=== PATIENT | female | born 1935 | race Caucasian/White ===

== ENCOUNTER → 2016-02-25 | Outpatient (REF) | payer MEDICARE ==
[2016-02-25 21:08] LABS: INR 2.47
== END ==
LOC: M SFHCLERA 09:40
PROVIDERS: ATTEND Family Medicine
DX: Z79.01 Long term (current) use of anticoagulants (principal)

== ENCOUNTER → 2016-03-24 | Outpatient (REF) | payer MEDICARE ==
[2016-03-24 19:16] LABS: INR 3.03
== END ==
LOC: M SFHCLERA 13:45
PROVIDERS: ATTEND Family Medicine
DX: Z51.81 Encounter for therapeutic drug level monitoring (principal); Z79.01 Long term (current) use of anticoagulants
CPT/HCPCS: 85610; 86580; G0463

== ENCOUNTER → 2016-04-07 | Outpatient (REF) | payer MEDICARE ==
[2016-04-07 22:03] LABS: INR 2.47
== END ==
LOC: M SFHCLERA 16:45
PROVIDERS: ATTEND Family Medicine
DX: Z79.01 Long term (current) use of anticoagulants (principal)

== ENCOUNTER → 2018-07-26 | Outpatient (REF) | payer MEDICARE | LOC: M SFHCLERA 16:54 | PROVIDERS: ATTEND Nurse Practitioner Family | DX: R32 Unspecified urinary incontinence (principal) | CPT/HCPCS: 81002; 87086; G0463 ==

== ENCOUNTER → 2018-07-27 | Outpatient (REF) | payer MEDICARE | LOC: M SFHCLERA 14:03 | PROVIDERS: ATTEND Nurse Practitioner Family | DX: R32 Unspecified urinary incontinence (principal) ==

== ENCOUNTER → 2018-08-12 | Outpatient (CLI) | payer MEDICARE ==
--- NOTE | 2018-08-12 15:17 | REP ---
HISTORY: Pneumonia. I have no priors for comparison. The heart is enlarged. There is a single chamber bipolar pacemaker device. There is evidence of interstitial fibrosis. The lung chaparro are hyperexpanded. Curvilinear and somewhat patchy bibasilar opacities are present. There is right cardiophrenic and costophrenic angle blunting. There are chronic changes seen involving the imaged osseous structures with a marked thoracic kyphosis and bony demineralization. IMPRESSION: Chronic changes as described above and seen in conjunction with cardiomegaly and bibasilar opacities of uncertain etiology. Although the findings likely represent chronic changes, I cannot rule out the possibility of bibasilar pneumonia, right greater than left and with a small right pleural effusion. Comparison to priors is paramount. An addendum report will be made if and when priors are made available for comparison. Electronically Signed by Claudy Cardenas DO 08/12/2018 03:32 P
== END ==
LOC: M LRY 14:04
PROVIDERS: ATTEND Family Medicine
DX: I51.7 Cardiomegaly (principal); R91.8 Other nonspecific abnormal finding of lung field; J18.1 Lobar pneumonia, unspecified organism
CPT/HCPCS: 71046; G0463

== ENCOUNTER → 2018-08-27 | Outpatient (CLI) | payer MEDICARE ==
--- NOTE | 2018-08-27 12:41 | REP ---
Clinical: Shortness of breath. Technique: PA and lateral views of the chest. Comparison: 08/12/2018. Findings: Mediastinum, cardiac silhouette, and lung chaparro are stable. Chronic changes primarily involving the mid to lower lobes and right diaphragmatic surface with blunting of the costophrenic angle appears chronic. No obvious acute process. Impression: Chronic stable changes compared to prior examination. No obvious acute process. Electronically Signed by Naveen Aguilera MD 08/27/2018 12:32 P
== END ==
LOC: M LRY 11:43
PROVIDERS: ATTEND Family Medicine
DX: R06.02 Shortness of breath (principal)

== ENCOUNTER → 2018-08-27 | Outpatient (CLI) | payer MEDICARE | LOC: M LRY 11:41 | PROVIDERS: ATTEND Family Medicine | DX: Z53.9 Procedure and treatment not carried out, unspecified reason (principal) ==

== ENCOUNTER → 2018-10-18 | Outpatient (REF) | payer MEDICARE | LOC: M SFHCLERA 10:25 | PROVIDERS: ATTEND Nurse Practitioner Family | DX: R46.89 Other symptoms and signs involving appearance and behavior (principal); J02.9 Acute pharyngitis, unspecified ==

== ENCOUNTER → 2018-10-18 | Outpatient (CLI) | payer MEDICARE ==
--- NOTE | 2018-10-19 06:21 | REP ---
CHEST, TWO VIEWS: PA and lateral views of the chest are performed. COMPARISON: 08/27/2018 Pleural and parenchymal changes in the lung bases appear stable and likely chronic. No new infiltrate is seen. Cardiac silhouette is mildly prominent and unchanged. There is calcification and tortuosity of the thoracic aorta. Mediastinal silhouette is unchanged. Lung apices are suboptimally visualized due to the patient's chin overlying these regions. Single lead pacemaker is unchanged. There is osteopenia. There are degenerative changes of the spine. There are compression deformities of the mid thoracic spine unchanged. IMPRESSION: Stable exam. Electronically Signed by Tenzin Madrid MD 10/19/2018 11:49 P
== END ==
LOC: M LRY 10:28
PROVIDERS: ATTEND Nurse Practitioner Family
DX: R91.8 Other nonspecific abnormal finding of lung field (principal); M85.88 Other specified disorders of bone density and structure, other site; R46.89 Other symptoms and signs involving appearance and behavior; Z95.0 Presence of cardiac pacemaker
CPT/HCPCS: 71046; 81002; 87086; 87880; G0463

== ENCOUNTER → 2019-02-22 | Outpatient (REF) | payer MEDICARE ==
[2019-02-22 12:18] LABS: HEMATOCRIT 40.5 % (36.0-47.0); HEMOGLOBIN 13.2 g/dl (12.0-15.5); MEAN CORPUSCULAR HEMOGLOBIN 32.7 pg (27.0-33.0); MEAN CORPUSCULAR HGB CONC 32.6 g/dl (32.0-36.5); MEAN CORPUSCULAR VOLUME 100.2 fl (80.0-96.0); PLATELET COUNT, AUTOMATED 145 10^3/uL (150-450); RED BLOOD COUNT 4.04 10^6/uL (4.00-5.40); WHITE BLOOD COUNT 4.3 10^3/uL (4.0-10.0)
[2019-02-22 12:32] LABS: INR 3.04; PROTHROMBIN TIME 31.4 SECONDS (11.8-14.0)
[2019-02-22 12:46] LABS: BLOOD UREA NITROGEN 11 MG/DL (7-18); CALCIUM LEVEL 8.5 MG/DL (8.8-10.2); CARBON DIOXIDE LEVEL 34 MEQ/L (21-32); CHLORIDE LEVEL 102 MEQ/L (98-107); GLOMERULAR FILTRATION RATE > 60.0 (>32); GLUCOSE, FASTING 116 MG/DL (70-100); NT-PRO BNP 235 PG/ML (<450); POTASSIUM SERUM 4.7 MEQ/L (3.5-5.1); SODIUM LEVEL 140 MEQ/L (136-145)
== END ==
PROVIDERS: ATTEND Internal Medicine
DX: I50.20 Unspecified systolic (congestive) heart failure (principal); I48.91 Unspecified atrial fibrillation

== ENCOUNTER → 2019-02-25 | Outpatient (REF) ==
[2019-02-25 10:24] LABS: INR 1.52
== END ==
PROVIDERS: ATTEND Internal Medicine
DX: I48.91 Unspecified atrial fibrillation (principal)

== ENCOUNTER → 2019-02-28 | Outpatient (REF) ==
[2019-02-28 13:31] LABS: INR 1.4; PROTHROMBIN TIME 16.9 SECONDS (11.8-14.0)
== END ==
PROVIDERS: ATTEND Internal Medicine
DX: I48.91 Unspecified atrial fibrillation (principal)

== ENCOUNTER → 2019-03-03 | Outpatient (REF) ==
[2019-03-03 12:45] LABS: HEMATOCRIT 40.4 % (36.0-47.0); HEMOGLOBIN 13.7 g/dl (12.0-15.5); MEAN CORPUSCULAR HEMOGLOBIN 33.7 pg (27.0-33.0); MEAN CORPUSCULAR HGB CONC 33.9 g/dl (32.0-36.5); MEAN CORPUSCULAR VOLUME 99.5 fl (80.0-96.0); PLATELET COUNT, AUTOMATED 145 10^3/uL (150-450); RED BLOOD COUNT 4.06 10^6/uL (4.00-5.40); WHITE BLOOD COUNT 4.4 10^3/uL (4.0-10.0)
[2019-03-03 13:03] LABS: INR 1.61; PROTHROMBIN TIME 18.9 SECONDS (11.8-14.0)
[2019-03-03 13:21] LABS: BLOOD UREA NITROGEN 9 MG/DL (7-18); CALCIUM LEVEL 8.2 MG/DL (8.8-10.2); CARBON DIOXIDE LEVEL 31 MEQ/L (21-32); CHLORIDE LEVEL 103 MEQ/L (98-107); CREATININE FOR GFR 0.72 MG/DL (0.55-1.30); GLOMERULAR FILTRATION RATE > 60.0 (>32); GLUCOSE, FASTING 76 MG/DL (70-100); POTASSIUM SERUM 4.8 MEQ/L (3.5-5.1); SODIUM LEVEL 140 MEQ/L (136-145)
== END ==
PROVIDERS: ATTEND Internal Medicine
DX: I48.20 Chronic atrial fibrillation, unspecified (principal); I50.20 Unspecified systolic (congestive) heart failure

== ENCOUNTER → 2019-03-05 | Outpatient (REF) | payer MEDICARE ==
[2019-03-05 11:03] LABS: INR 1.73
== END ==
PROVIDERS: ATTEND Internal Medicine
DX: Z79.01 Long term (current) use of anticoagulants (principal)

== ENCOUNTER → 2019-03-09 | Outpatient (REF) | payer MEDICARE ==
[2019-03-09 12:18] LABS: HEMATOCRIT 43.3 % (36.0-47.0); HEMOGLOBIN 14.5 g/dl (12.0-15.5); MEAN CORPUSCULAR HEMOGLOBIN 33.4 pg (27.0-33.0); MEAN CORPUSCULAR HGB CONC 33.5 g/dl (32.0-36.5); MEAN CORPUSCULAR VOLUME 99.8 fl (80.0-96.0); PLATELET COUNT, AUTOMATED 198 10^3/uL (150-450); RED BLOOD COUNT 4.34 10^6/uL (4.00-5.40); WHITE BLOOD COUNT 6.7 10^3/uL (4.0-10.0)
[2019-03-09 12:33] LABS: INR 2.69; PROTHROMBIN TIME 28.5 SECONDS (11.8-14.0)
[2019-03-09 13:08] LABS: ALBUMIN 3.2 GM/DL (3.2-5.2); ALT/SGPT 15 U/L (12-78); BILIRUBIN,TOTAL 0.4 MG/DL (0.2-1.0); BLOOD UREA NITROGEN 14 MG/DL (7-18); CARBON DIOXIDE LEVEL 32 MEQ/L (21-32); CHLORIDE LEVEL 101 MEQ/L (98-107); CREATININE FOR GFR 0.89 MG/DL (0.55-1.30); GLOMERULAR FILTRATION RATE > 60.0 (>32); GLUCOSE, FASTING 113 MG/DL (70-100); POTASSIUM SERUM 5.4 MEQ/L (3.5-5.1); SODIUM LEVEL 140 MEQ/L (136-145); TOTAL 25(OH) VITAMIN D 41.4 NG/ML (30.0-100.0); TOTAL PROTEIN 6.7 GM/DL (6.4-8.2)
== END ==
PROVIDERS: ATTEND Internal Medicine
DX: I48.91 Unspecified atrial fibrillation (principal); I11.0 Hypertensive heart disease with heart failure; I50.9 Heart failure, unspecified; E55.9 Vitamin D deficiency, unspecified; Z79.899 Other long term (current) drug therapy

== ENCOUNTER → 2019-03-14 | Outpatient (REF) | payer MEDICARE ==
[2019-03-14 10:42] LABS: INR 2.61; PROTHROMBIN TIME 27.8 SECONDS (11.8-14.0)
== END ==
PROVIDERS: ATTEND Internal Medicine
DX: I48.91 Unspecified atrial fibrillation (principal); E87.6 Hypokalemia

== ENCOUNTER → 2019-03-21 | Outpatient (REF) | payer MEDICARE ==
[2019-03-21 10:52] LABS: INR 2.41; PROTHROMBIN TIME 26.1 SECONDS (11.8-14.0)
== END ==
PROVIDERS: ATTEND Internal Medicine
DX: E87.6 Hypokalemia (principal); Z79.899 Other long term (current) drug therapy

== ENCOUNTER → 2019-03-28 | Outpatient (REF) | payer MEDICARE ==
[2019-03-28 10:25] LABS: INR 2.68; PROTHROMBIN TIME 28.4 SECONDS (11.8-14.0)
== END ==
PROVIDERS: ATTEND Internal Medicine
DX: I48.91 Unspecified atrial fibrillation (principal)

== ENCOUNTER → 2019-04-04 | Outpatient (REF) | payer MEDICARE ==
[2019-04-04 09:43] LABS: INR 2.51; PROTHROMBIN TIME 26.9 SECONDS (11.8-14.0)
== END ==
PROVIDERS: ATTEND Nurse Practitioner Adult Health
DX: I48.91 Unspecified atrial fibrillation (principal)

== ENCOUNTER → 2019-04-11 | Outpatient (REF) | payer MEDICARE ==
[2019-04-11 12:05] LABS: BLOOD UREA NITROGEN 11 MG/DL (7-18); CALCIUM LEVEL 8.7 MG/DL (8.8-10.2); CARBON DIOXIDE LEVEL 35 MEQ/L (21-32); CHLORIDE LEVEL 103 MEQ/L (98-107); CREATININE FOR GFR 0.76 MG/DL (0.55-1.30); GLOMERULAR FILTRATION RATE > 60.0 (>32); GLUCOSE, FASTING 63 MG/DL (70-100); POTASSIUM SERUM 4.4 MEQ/L (3.5-5.1); SODIUM LEVEL 140 MEQ/L (136-145)
== END ==
PROVIDERS: ATTEND Internal Medicine
DX: E87.6 Hypokalemia (principal)

== ENCOUNTER → 2019-04-18 | Outpatient (REF) | payer MEDICARE ==
[2019-04-18 10:10] LABS: INR 2.32; PROTHROMBIN TIME 25.3 SECONDS (11.8-14.0)
== END ==
PROVIDERS: ATTEND Nurse Practitioner Adult Health
DX: I48.91 Unspecified atrial fibrillation (principal)

== ENCOUNTER → 2019-04-25 | Outpatient (REF) | payer MEDICARE ==
[2019-04-25 13:18] LABS: INR 2.1; PROTHROMBIN TIME 23.4 SECONDS (11.8-14.0)
== END ==
PROVIDERS: ATTEND Internal Medicine
DX: I48.91 Unspecified atrial fibrillation (principal)

== ENCOUNTER → 2019-05-16 | Outpatient (REF) | payer MEDICARE ==
[2019-05-16 11:53] LABS: INR 2.06
== END ==
PROVIDERS: ATTEND Nurse Practitioner Adult Health
DX: I48.91 Unspecified atrial fibrillation (principal)

== ENCOUNTER → 2019-05-30 | Outpatient (REF) | payer MEDICARE ==
[2019-05-30 11:44] LABS: INR 1.37; PROTHROMBIN TIME 16.6 SECONDS (11.8-14.0)
== END ==
PROVIDERS: ATTEND Nurse Practitioner Adult Health
DX: I48.91 Unspecified atrial fibrillation (principal); Z79.01 Long term (current) use of anticoagulants

== ENCOUNTER → 2019-06-06 | Outpatient (REF) | payer MEDICARE ==
[2019-06-06 12:29] LABS: INR 1.64; PROTHROMBIN TIME 19.1 SECONDS (11.8-14.0)
== END ==
PROVIDERS: ATTEND Nurse Practitioner Adult Health
DX: I48.91 Unspecified atrial fibrillation (principal)

== ENCOUNTER → 2019-06-13 | Outpatient (REF) | payer MEDICARE ==
[2019-06-13 14:16] LABS: INR 2.83; PROTHROMBIN TIME 29.7 SECONDS (11.8-14.0)
== END ==
PROVIDERS: ATTEND Nurse Practitioner Adult Health
DX: I48.91 Unspecified atrial fibrillation (principal)

== ENCOUNTER → 2019-06-16 | Outpatient (REF) | payer MEDICARE ==
--- NOTE | 2019-06-16 16:40 | REPPI ---
REASON: Chest pain. COMPARISON: Multiple, the latest 10/18/2018. AP and lateral views were obtained. The technique utilized in obtaining the radiograph has magnified the cardiac silhouette and accentuated the interstitial markings. The cardiac silhouette is magnified by technique. There is cardiomegaly. There are chronic bibasilar opacities and evidence of chronic interstitial fibrotic change, right base greater than left, unchanged. There is a single-chamber bipolar pacemaker device, status quo. No acute patchy parenchymal opacities or pleural effusions seem to have developed on this limited AP exam. There is no significant change in appearance of the osseous structures. IMPRESSION: Chronic changes, as described above, seen on this limited exam. Electronically Signed by Claudy Cardenas DO 06/16/2019 04:55 P
== END ==
PROVIDERS: ATTEND Internal Medicine
DX: R07.89 Other chest pain (principal)

== ENCOUNTER → 2019-06-20 | Outpatient (REF) | payer MEDICARE ==
[2019-06-20 11:57] LABS: INR 2.82; PROTHROMBIN TIME 29.6 SECONDS (11.8-14.0)
== END ==
PROVIDERS: ATTEND Nurse Practitioner Adult Health
DX: I48.91 Unspecified atrial fibrillation (principal)

== ENCOUNTER → 2019-06-27 | Outpatient (REF) ==
[2019-06-27 10:17] LABS: INR 1.74; PROTHROMBIN TIME 20.1 SECONDS (11.8-14.0)
== END ==
PROVIDERS: ATTEND Nurse Practitioner Adult Health
DX: I48.91 Unspecified atrial fibrillation (principal)

== ENCOUNTER → 2019-07-04 | Outpatient (REF) | payer MEDICARE ==
[2019-07-04 10:11] LABS: INR 1.76; PROTHROMBIN TIME 20.3 SECONDS (11.8-14.0)
== END ==
PROVIDERS: ATTEND Nurse Practitioner Adult Health
DX: I48.91 Unspecified atrial fibrillation (principal)

== ENCOUNTER → 2019-07-11 | Outpatient (REF) | payer MEDICARE ==
[2019-07-11 11:55] LABS: INR 2.4
== END ==
PROVIDERS: ATTEND Nurse Practitioner Adult Health
DX: I48.91 Unspecified atrial fibrillation (principal)

== ENCOUNTER → 2019-07-12 | Outpatient (REF) | PROVIDERS: ATTEND Internal Medicine | DX: Z03.818 Encounter for observation for suspected exposure to other biological agents ruled out (principal) ==

== ENCOUNTER → 2019-07-19 | Outpatient (REF) | payer MEDICARE ==
[2019-07-19 12:17] LABS: INR 3.37; PROTHROMBIN TIME 34.1 SECONDS (11.8-14.0)
== END ==
PROVIDERS: ATTEND Internal Medicine
DX: I48.91 Unspecified atrial fibrillation (principal)

== ENCOUNTER → 2019-07-22 | Outpatient (REF) | payer MEDICARE ==
[2019-07-22 10:59] LABS: INR 1.95
== END ==
PROVIDERS: ATTEND Internal Medicine
DX: I48.91 Unspecified atrial fibrillation (principal)

== ENCOUNTER → 2019-07-27 | Outpatient (REF) | payer MEDICARE ==
[2019-07-27 11:06] LABS: INR 2.92; PROTHROMBIN TIME 30.4 SECONDS (11.8-14.0)
== END ==
PROVIDERS: ATTEND Nurse Practitioner Adult Health
DX: I48.91 Unspecified atrial fibrillation (principal)

== ENCOUNTER → 2019-08-03 | Outpatient (REF) | payer MEDICARE ==
[2019-08-03 10:14] LABS: INR 2.17; PROTHROMBIN TIME 23.9 SECONDS (11.8-14.0)
== END ==
PROVIDERS: ATTEND Internal Medicine
DX: I48.91 Unspecified atrial fibrillation (principal)

== ENCOUNTER → 2019-08-10 | Outpatient (REF) | payer MEDICARE ==
[2019-08-10 13:23] LABS: INR 1.58; PROTHROMBIN TIME 18.6 SECONDS (11.8-14.0)
== END ==
PROVIDERS: ATTEND Internal Medicine
DX: I48.91 Unspecified atrial fibrillation (principal)

== ENCOUNTER → 2019-08-17 | Outpatient (REF) | payer MEDICARE ==
[2019-08-17 14:07] LABS: INR 2.12; PROTHROMBIN TIME 23.5 SECONDS (11.8-14.0)
== END ==
PROVIDERS: ATTEND Nurse Practitioner Adult Health
DX: I48.91 Unspecified atrial fibrillation (principal)

== ENCOUNTER → 2019-08-24 | Outpatient (REF) | payer MEDICARE ==
[2019-08-24 10:10] LABS: INR 2.21; PROTHROMBIN TIME 24.3 SECONDS (11.8-14.0)
== END ==
PROVIDERS: ATTEND Nurse Practitioner Adult Health
DX: I48.91 Unspecified atrial fibrillation (principal)

== ENCOUNTER → 2019-08-31 | Outpatient (REF) | payer MEDICARE ==
[2019-08-31 10:28] LABS: INR 1.62
== END ==
PROVIDERS: ATTEND Nurse Practitioner Adult Health
DX: I48.91 Unspecified atrial fibrillation (principal)

== ENCOUNTER → 2019-09-07 | Outpatient (REF) | payer MEDICARE ==
[2019-09-07 12:13] LABS: INR 1.95
== END ==
PROVIDERS: ATTEND Internal Medicine
DX: I48.91 Unspecified atrial fibrillation (principal)

== ENCOUNTER → 2019-09-14 | Outpatient (REF) | payer MEDICARE ==
[2019-09-14 10:17] LABS: INR 2.2; PROTHROMBIN TIME 24.2 SECONDS (11.8-14.0)
== END ==
PROVIDERS: ATTEND Nurse Practitioner Adult Health
DX: I48.91 Unspecified atrial fibrillation (principal)

== ENCOUNTER → 2019-09-21 | Outpatient (REF) | payer MEDICARE ==
[2019-11-04 10:14] LABS: INR 2.53; PROTHROMBIN TIME 27.8 SECONDS (11.8-14.0)
== END ==
PROVIDERS: ATTEND Nurse Practitioner Adult Health
DX: I48.20 Chronic atrial fibrillation, unspecified (principal)

== ENCOUNTER → 2019-09-28 | Outpatient (REF) | payer MEDICARE ==
[2019-10-28 11:49] LABS: INR 1.72; PROTHROMBIN TIME 20.5 SECONDS (11.8-14.0)
== END ==
PROVIDERS: ATTEND Internal Medicine
DX: I48.91 Unspecified atrial fibrillation (principal); Z79.01 Long term (current) use of anticoagulants

== ENCOUNTER → 2019-10-05 | Outpatient (REF) | payer MEDICARE ==
[2019-12-13 12:54] LABS: INR 3.23; PROTHROMBIN TIME 33.7 SECONDS (12.5-14.3)
== END ==
PROVIDERS: ATTEND Internal Medicine
DX: I48.91 Unspecified atrial fibrillation (principal)

== ENCOUNTER → 2019-10-12 | Outpatient (REF) | payer MEDICARE ==
[2019-11-08 10:13] LABS: INR 1.99
== END ==
PROVIDERS: ATTEND Internal Medicine
DX: I48.91 Unspecified atrial fibrillation (principal)

== ENCOUNTER → 2019-10-19 | Outpatient (REF) | payer MEDICARE ==
[2019-10-19 12:51] LABS: INR 1.67; PROTHROMBIN TIME 20.1 SECONDS (11.8-14.0)
== END ==
PROVIDERS: ATTEND Internal Medicine
DX: I48.91 Unspecified atrial fibrillation (principal)

== ENCOUNTER → 2019-10-26 | Outpatient (REF) | payer MEDICARE ==
[2019-10-26 10:14] LABS: INR 2.32
== END ==
PROVIDERS: ATTEND Internal Medicine
DX: I48.91 Unspecified atrial fibrillation (principal)

== ENCOUNTER → 2019-11-02 | Outpatient (REF) | payer MEDICARE ==
[2019-11-02 11:02] LABS: INR 1.58; PROTHROMBIN TIME 19.2 SECONDS (11.8-14.0)
== END ==
PROVIDERS: ATTEND Internal Medicine
DX: I48.91 Unspecified atrial fibrillation (principal)

== ENCOUNTER → 2019-11-09 | Outpatient (REF) | payer MEDICARE ==
[2019-11-09 10:58] LABS: INR 3.03; PROTHROMBIN TIME 32.1 SECONDS (11.8-14.0)
== END ==
PROVIDERS: ATTEND Physician Assistant
DX: I48.91 Unspecified atrial fibrillation (principal)

== ENCOUNTER → 2019-11-16 | Outpatient (REF) | payer MEDICARE ==
[2019-11-16 12:16] LABS: INR 1.71; PROTHROMBIN TIME 20.4 SECONDS (12.5-14.3)
== END ==
PROVIDERS: ATTEND Nurse Practitioner Adult Health
DX: I48.91 Unspecified atrial fibrillation (principal)

== ENCOUNTER → 2019-11-23 | Outpatient (REF) | payer MEDICARE ==
[2019-11-23 11:02] LABS: INR 2.15; PROTHROMBIN TIME 24.5 SECONDS (12.5-14.3)
== END ==
PROVIDERS: ATTEND Nurse Practitioner Adult Health
DX: I48.91 Unspecified atrial fibrillation (principal)

== ENCOUNTER → 2019-11-30 | Outpatient (REF) ==
[2019-11-30 11:28] LABS: INR 2.1
== END ==
PROVIDERS: ATTEND Nurse Practitioner Adult Health
DX: I48.91 Unspecified atrial fibrillation (principal)

== ENCOUNTER → 2019-12-07 | Outpatient (REF) | payer MEDICARE ==
[2019-12-07 11:38] LABS: INR 2.8; PROTHROMBIN TIME 30.1 SECONDS (12.5-14.3)
== END ==
PROVIDERS: ATTEND Nurse Practitioner Adult Health
DX: I48.91 Unspecified atrial fibrillation (principal)

== ENCOUNTER → 2019-12-14 | Outpatient (REF) | payer MEDICARE ==
[2019-12-14 10:12] LABS: INR 2.82; PROTHROMBIN TIME 30.3 SECONDS (12.5-14.3)
== END ==
PROVIDERS: ATTEND Nurse Practitioner Adult Health
DX: I48.91 Unspecified atrial fibrillation (principal)

== ENCOUNTER → 2019-12-21 | Outpatient (REF) | payer MEDICARE ==
[2019-12-21 10:18] LABS: INR 2.96; PROTHROMBIN TIME 31.5 SECONDS (12.5-14.3)
== END ==
PROVIDERS: ATTEND Internal Medicine
DX: I48.91 Unspecified atrial fibrillation (principal)

== ENCOUNTER → 2020-01-05 | Outpatient (REF) | payer MEDICARE | PROVIDERS: ATTEND Internal Medicine | DX: Z20.828 Contact with and (suspected) exposure to other viral communicable diseases (principal) ==

== ENCOUNTER → 2020-01-12 | Outpatient (REF) | payer MEDICARE | LOC: EDSTATUS 02-18 14:22 | PROVIDERS: ATTEND Internal Medicine | DX: Z20.828 Contact with and (suspected) exposure to other viral communicable diseases (principal) ==

== ENCOUNTER → 2020-01-18 | Outpatient (REF) | payer MEDICARE | PROVIDERS: ATTEND Internal Medicine | DX: Z20.828 Contact with and (suspected) exposure to other viral communicable diseases (principal) ==

== ENCOUNTER → 2020-02-05 | Outpatient (REF) | payer MEDICARE | PROVIDERS: ATTEND Internal Medicine | DX: Z20.828 Contact with and (suspected) exposure to other viral communicable diseases (principal) ==

== ENCOUNTER → 2020-02-09 | Outpatient (REF) | payer MEDICARE ==
[2020-02-09 12:47] LABS: INFLUENZA A AMPLIFICATION NEGATIVE (NEGATIVE); INFLUENZA B AMPLIFICATION NEGATIVE (NEGATIVE)
== END ==
PROVIDERS: ATTEND Internal Medicine
DX: Z20.828 Contact with and (suspected) exposure to other viral communicable diseases (principal)
CPT/HCPCS: 87502; U0003

== ENCOUNTER → 2020-06-01 | Outpatient (REF) | payer MEDICARE ==
[2020-06-01 20:33] LABS: RSV AMPLIFICATION NEGATIVE (NEGATIVE)
== END ==
PROVIDERS: ATTEND Internal Medicine
DX: Z11.52 Encounter for screening for COVID-19 (principal)

== ENCOUNTER → 2020-08-28 | Outpatient (REF) | payer MEDICARE ==
[2020-08-28 12:20] LABS: HEMATOCRIT 48.1 % (36.0-47.0); HEMOGLOBIN 15.9 g/dl (12.0-15.5); MEAN CORPUSCULAR HEMOGLOBIN 34.6 pg (27.0-33.0); MEAN CORPUSCULAR HGB CONC 33.1 g/dl (32.0-36.5); MEAN CORPUSCULAR VOLUME 104.8 fl (80.0-96.0); PLATELET COUNT, AUTOMATED 152 10^3/uL (150-450); RED BLOOD COUNT 4.59 10^6/uL (4.00-5.40); WHITE BLOOD COUNT 5.2 10^3/uL (4.0-10.0)
[2020-08-28 12:57] LABS: ALBUMIN 3.1 GM/DL (3.2-5.2); ALT/SGPT 16 U/L (12-78); BILIRUBIN,TOTAL 0.5 MG/DL (0.2-1.0); BLOOD UREA NITROGEN 12 MG/DL (7-18); CALCIUM LEVEL 9.1 MG/DL (8.8-10.2); CARBON DIOXIDE LEVEL 35 MEQ/L (21-32); CHLORIDE LEVEL 100 MEQ/L (98-107); GLOMERULAR FILTRATION RATE > 60.0 (>32); GLUCOSE, FASTING 135 MG/DL (70-100); POTASSIUM SERUM 4.2 MEQ/L (3.5-5.1); SODIUM LEVEL 140 MEQ/L (136-145); TOTAL PROTEIN 6.5 GM/DL (6.4-8.2)
== END ==
PROVIDERS: ATTEND Internal Medicine
DX: I10 Essential (primary) hypertension (principal); Z79.899 Other long term (current) drug therapy

== ENCOUNTER 2021-01-06 21:32 | Inpatient (IN) | payer MEDICARE ==
[~2021-01-06] VITALS: Ht 157.5 cm; Wt 52.0 kg
[2021-01-06] MEDS ORDERED: ONDANSETRON 4MG/2ML VIAL IV ONE (21:55)
[2021-01-06] MEDS ORDERED: MORPHINE 4 MG/ML 1ML VIAL/SYRINGE (J2270) IV PRN ×2 (21:55→23:25)
[2021-01-06] MEDS ORDERED: FURO20TA2 PO (22:16)
[2021-01-06] MEDS ORDERED: FLEEENE12 PR (22:16)
[2021-01-06] MEDS ORDERED: ESCI5SOL3 PO (22:16)
[2021-01-06] MEDS ORDERED: ELIQ2.5T PO (22:16)
[2021-01-06] MEDS ORDERED: ACET325T43 PO (22:19)
[2021-01-06] MEDS ORDERED: VITA500045 PO (22:19)
[2021-01-06] MEDS ORDERED: MILKSUS3 PO (22:19)
[2021-01-06] MEDS ORDERED: POTA-151 PO (22:19)
[2021-01-06 22:49] LABS: BASO % 0.4 % (0.0-1.0); EOS # 0.1 10^3/uL (0.0-0.5); HEMATOCRIT 45.5 % (36.0-47.0); HEMOGLOBIN 14.2 g/dl (12.0-15.5); LYMPH # 0.8 10^3/uL (1.5-5.0); LYMPH % 9.9 % (24.0-44.0); MEAN CORPUSCULAR HEMOGLOBIN 32.3 pg (27.0-33.0); MEAN CORPUSCULAR HGB CONC 31.2 g/dl (32.0-36.5); MEAN CORPUSCULAR VOLUME 103.4 fl (80.0-96.0); MONO # 0.9 10^3/uL (0.0-0.8); MONO % 11.4 % (2.0-8.0); NEUTROPHILS # 6.2 10^3/uL (1.5-8.5); PLATELET COUNT, AUTOMATED 141 10^3/uL (150-450)
[2021-01-06 23:16] LABS: BLOOD UREA NITROGEN 16 MG/DL (7-18); CALCIUM LEVEL 8.5 MG/DL (8.8-10.2); CARBON DIOXIDE LEVEL 37 MEQ/L (21-32); CHLORIDE LEVEL 101 MEQ/L (98-107); CREATININE FOR GFR 0.71 MG/DL (0.55-1.30); GLOMERULAR FILTRATION RATE > 60.0 (>32); GLUCOSE, FASTING 123 MG/DL (70-100); POTASSIUM SERUM 4.6 MEQ/L (3.5-5.1); SODIUM LEVEL 143 MEQ/L (136-145)
[2021-01-06 23:23] LABS: INR 1.34
[2021-01-06 23:24] LABS: PARTIAL THROMBOPLASTIN TIME 34.4 SECONDS (25.9-37.0)
[2021-01-06] MEDS ORDERED: KETOROLAC 30 MG/ML 1ML VIAL IV PRN (23:25)
[2021-01-06] MEDS ORDERED: ACETAMINOPHEN TAB 650MG DOSE (2X325MG) PO PRN (23:25)
[2021-01-06] MEDS ORDERED: MOM 30ML SUSPENSION UDC PO PRN (23:25)
[2021-01-06] MEDS ORDERED: ONDANSETRON 4MG/2ML VIAL IV PRN (23:30)
[2021-01-06 23:42] LABS: RSV AMPLIFICATION NEGATIVE (NEGATIVE)
[2021-01-06 23:53] LABS: ALBUMIN 2.7 GM/DL (3.2-5.2); ALT/SGPT 22 U/L (12-78); BILIRUBIN,DIRECT 0.2 MG/DL (0.0-0.2); BILIRUBIN,TOTAL 0.5 MG/DL (0.2-1.0); CK-MB VALUE MASS 2.1 NG/ML (<3.6); CPK CREATINE PHOSPHOKINASE 67 U/L (26-192); MB/CK RELATIVE INDEX 3.13 (< OR =4); NT-PRO BNP 1078 PG/ML (<450); TOTAL PROTEIN 6.3 GM/DL (6.4-8.2); TROPONIN I < 0.02 NG/ML (< 0.10)
[2021-01-07] MEDS ORDERED: FURO20TA2 PO (00:14)
[2021-01-07] MEDS ORDERED: POTA10CA32 PO (00:14)
[2021-01-07] MEDS ORDERED: IPRA0.00 INH (00:14)
[2021-01-07] MEDS ORDERED: BISA10SU PR (00:14)
[2021-01-07] MEDS ORDERED: LEXA1TAB PO (00:14)
[2021-01-07] MEDS ORDERED: ACET-907 PO (00:14)
[2021-01-07] MEDS ORDERED: ERGO500029 PO (00:14)
[2021-01-07] MEDS ORDERED: FLEEENE12 PR (00:14)
[2021-01-07] MEDS ORDERED: MOM30SS2 PO (00:14)
[2021-01-07] MEDS ORDERED: ELIQ2.5T PO (00:14)
[2021-01-07] MEDS ORDERED: HOME MED LIST COMPLETE! XX SCH (00:20)
[2021-01-07] MEDS ORDERED: BISACODYL 10 MG SUPP PR PRN (00:30)
[2021-01-07] MEDS ORDERED: FLEET ENEMA PR PRN ×2 (00:30→23:45)
[2021-01-07] MEDS ORDERED: IPRATROPIUM 0.5MG/ALBUTEROL 2.5MG INH SOL UD 3ML (DUONEB) INH PRN (00:30)
[2021-01-07 01:45] VITALS: BP 92/49
[2021-01-07] MEDS: D5W/0.45% SODIUM CHLORIDE 1,000 ML IV SCH ×2 (05:30→17:41)
[2021-01-07 06:00] VITALS: BP 96/62
[2021-01-07 08:03] LABS: HEMATOCRIT 40.2 % (36.0-47.0); HEMOGLOBIN 12.6 g/dl (12.0-15.5); MEAN CORPUSCULAR HEMOGLOBIN 33.4 pg (27.0-33.0); MEAN CORPUSCULAR HGB CONC 31.3 g/dl (32.0-36.5); MEAN CORPUSCULAR VOLUME 106.6 fl (80.0-96.0); PLATELET COUNT, AUTOMATED 143 10^3/uL (150-450); RED BLOOD COUNT 3.77 10^6/uL (4.00-5.40); WHITE BLOOD COUNT 14.4 10^3/uL (4.0-10.0)
[2021-01-07 08:24] LABS: CALCIUM LEVEL 8.5 MG/DL (8.8-10.2); CREATININE FOR GFR 1.23 MG/DL (0.55-1.30); GLOMERULAR FILTRATION RATE 44.3 (>32); POTASSIUM SERUM 5.9 MEQ/L (3.5-5.1)
[2021-01-07 09:00] VITALS: BP 111/58
[2021-01-07] MEDS ORDERED: FUROSEMIDE 20 MG TAB PO SCH (09:00)
[2021-01-07] MEDS: DOCUSATE SODIUM 100MG CAPSULE PO SCH ×2 (09:00→20:22)
[2021-01-07] MEDS ORDERED: POTASSIUM CHLORIDE 10MEQ SR TABLET PO SCH (09:00)
[2021-01-07] MEDS: ESCITALOPRAM OXALATE 10 MG TAB (LEXAPRO) PO SCH (09:12)
[2021-01-07 14:00] VITALS: BP 91/68
[2021-01-07] MEDS: MORPHINE 4 MG/ML 1ML VIAL/SYRINGE (J2270) IV PRN (14:45)
[2021-01-07] MEDS ORDERED: SOD POLYSTYRENE SULFONATE SUSP 15 GM/60 ML UD PO ONE ×2 (15:00→19:00)
[2021-01-07 16:55] LABS: CALCIUM LEVEL 8.5 MG/DL (8.8-10.2); CREATININE FOR GFR 1.6 MG/DL (0.55-1.30); GLOMERULAR FILTRATION RATE 32.7 (>32); POTASSIUM SERUM 5.6 MEQ/L (3.5-5.1)
[2021-01-07] MEDS ORDERED: NS 500 ML IV ONE ×2 (17:10→23:45)
[2021-01-07 22:00] VITALS: BP 88/68
[2021-01-07 23:39] LABS: CALCIUM LEVEL 8.2 MG/DL (8.8-10.2); CREATININE FOR GFR 1.71 MG/DL (0.55-1.30); GLOMERULAR FILTRATION RATE 30.3 (>32); POTASSIUM SERUM 6.5 MEQ/L (3.5-5.1)
[2021-01-07] MEDS ORDERED: DEXTROSE 50% 50 ML SYRINGE IV STA (23:43)
[2021-01-07] MEDS ORDERED: HumuLIN R (REGULAR) INSULIN (NovoLIN R) **100U/ML** PER UNIT IV STA (23:43)
[2021-01-07] MEDS ORDERED: GLYCERIN ADULT SUPP PR PRN (23:45)
[2021-01-07] MEDS ORDERED: CALCIUM GLUCONATE 1,000 MG in D5W MINI-BAG PLUS 100 ML IV ONE (23:45)
[2021-01-07 23:50] VITALS: BP 82/52
[2021-01-08] VITALS (7 sets, daily range): BP systolic 90–138; BP diastolic 53–76
[2021-01-08] MEDS ORDERED: HumuLIN R (REGULAR) INSULIN (NovoLIN R) **100U/ML** PER UNIT IV ONE (00:10)
[2021-01-08] MEDS: D5W/0.45% SODIUM CHLORIDE 1,000 ML IV SCH ×2 (00:29→07:34)
[2021-01-08] MEDS: MORPHINE 4 MG/ML 1ML VIAL/SYRINGE (J2270) IV PRN (01:32)
[2021-01-08 05:45] LABS: HEMATOCRIT 30.9 % (36.0-47.0); MEAN CORPUSCULAR HEMOGLOBIN 33.6 pg (27.0-33.0); MEAN CORPUSCULAR HGB CONC 31.4 g/dl (32.0-36.5); MEAN CORPUSCULAR VOLUME 106.9 fl (80.0-96.0); PLATELET COUNT, AUTOMATED 127 10^3/uL (150-450); RED BLOOD COUNT 2.89 10^6/uL (4.00-5.40); WHITE BLOOD COUNT 14.7 10^3/uL (4.0-10.0)
[2021-01-08 06:02] LABS: CALCIUM LEVEL 7.8 MG/DL (8.8-10.2); CREATININE FOR GFR 1.82 MG/DL (0.55-1.30); GLOMERULAR FILTRATION RATE 28.2 (>32); MAGNESIUM LEVEL 1.8 MG/DL (1.8-2.4); POTASSIUM SERUM 5.3 MEQ/L (3.5-5.1)
[2021-01-08 06:21] LABS: HEMOGLOBIN 9.7 g/dl (12.0-15.5)
[2021-01-08] MEDS ORDERED: NS 1,000 ML IV SCH (07:45)
[2021-01-08] MEDS ORDERED: CALCIUM GLUCONATE 1,000 MG in D5W MINI-BAG PLUS 100 ML IV ONE ×3 (08:00→21:45)
[2021-01-08] MEDS ORDERED: SOD POLYSTYRENE SULFONATE SUSP 15 GM/60 ML UD PO ONE (09:00)
[2021-01-08] MEDS: DOCUSATE SODIUM 100MG CAPSULE PO SCH ×2 (09:00→21:00)
[2021-01-08] MEDS: ESCITALOPRAM OXALATE 10 MG TAB (LEXAPRO) PO SCH (09:00)
[2021-01-08 12:59] LABS: CALCIUM LEVEL 8.5 MG/DL (8.8-10.2); CREATININE FOR GFR 1.86 MG/DL (0.55-1.30); GLOMERULAR FILTRATION RATE 27.5 (>32); POTASSIUM SERUM 6.1 MEQ/L (3.5-5.1)
[2021-01-08] MEDS ORDERED: SODIUM BICARBONATE 100 MEQ in D5W 1,000 ML IV SCH ×2 (15:00→22:30)
[2021-01-08 15:16] LABS: VENOUS BASE EXCESS -2.1 (-2.0-2.0); VENOUS HCO3 31.1 MEQ/L (23.0-27.0); VENOUS O2 SATURATION 59.9 % (60.0-80.0); VENOUS PARTIAL PRESSURE CO2 121.5 mmHg (38.0-50.0); VENOUS PARTIAL PRESSURE O2 30.7 mmHg (30.0-50.0); VENOUS PH 7.026 UNITS (7.330-7.430); VENOUS TOTAL CO2 34.8 MEQ/L (24.0-28.0)
[2021-01-08 15:52] LABS: CALCIUM LEVEL 8.6 MG/DL (8.8-10.2); CREATININE FOR GFR 1.87 MG/DL (0.55-1.30); GLOMERULAR FILTRATION RATE 27.3 (>32); POTASSIUM SERUM 6.3 MEQ/L (3.5-5.1)
[2021-01-08 17:47] LABS: CALCIUM LEVEL 8.5 MG/DL (8.8-10.2); CREATININE FOR GFR 1.96 MG/DL (0.55-1.30); GLOMERULAR FILTRATION RATE 25.9 (>32); POTASSIUM SERUM 5.8 MEQ/L (3.5-5.1)
[2021-01-08] MEDS ORDERED: LIDOCAINE W/EPINEPHRINE 1% 20ML VIAL As Ordered ONE (19:18)
[2021-01-08 21:02] LABS: CALCIUM LEVEL 8.6 MG/DL (8.8-10.2); GLOMERULAR FILTRATION RATE 25.3 (>32); POTASSIUM SERUM 5.4 MEQ/L (3.5-5.1)
[2021-01-09] VITALS (11 sets, daily range): BP systolic 90–129; BP diastolic 44–89
[2021-01-09] MEDS ORDERED: NS 500 ML IV ONE ×2 (00:35→06:15)
[2021-01-09 00:36] LABS: CALCIUM LEVEL 8.5 MG/DL (8.8-10.2); CREATININE FOR GFR 2.04 MG/DL (0.55-1.30); GLOMERULAR FILTRATION RATE 24.7 (>32); POTASSIUM SERUM 5.7 MEQ/L (3.5-5.1)
[2021-01-09] MEDS ORDERED: SOD POLYSTYRENE SULFONATE SUSP 30 GM/120 ML ENEMA PR ONE (01:00)
[2021-01-09 03:05] LABS: VENOUS BASE EXCESS -3.5 (-2.0-2.0); VENOUS HCO3 24.1 MEQ/L (23.0-27.0); VENOUS O2 SATURATION 99.3 % (60.0-80.0); VENOUS PARTIAL PRESSURE CO2 56.5 mmHg (38.0-50.0); VENOUS PARTIAL PRESSURE O2 176.8 mmHg (30.0-50.0); VENOUS PH 7.248 UNITS (7.330-7.430); VENOUS STANDARD HCO3 21.6 MEQ/L; VENOUS TOTAL CO2 25.8 MEQ/L (24.0-28.0)
[2021-01-09] MEDS ORDERED: HYDROMORPHONE HCL 0.5 MG/ 0.5 ML SYRINGE (J1170 PER 1) IV STA ×2 (03:32→04:06)
[2021-01-09] MEDS ORDERED: ACETAMINOPHEN 650 MG SUPP PR STA (04:03)
[2021-01-09 04:39] LABS: BASO % 0.1 % (0.0-1.0); HEMATOCRIT 29.6 % (36.0-47.0); HEMOGLOBIN 9.3 g/dl (12.0-15.5); LYMPH % 3.7 % (24.0-44.0); MEAN CORPUSCULAR HGB CONC 31.4 g/dl (32.0-36.5); MONO # 3.6 10^3/uL (0.0-0.8); MONO % 13.2 % (2.0-8.0); NEUTROPHILS # 22.3 10^3/uL (1.5-8.5); NEUTROPHILS % 82.1 % (36.0-66.0); PLATELET COUNT, AUTOMATED 122 10^3/uL (150-450); RED BLOOD COUNT 2.82 10^6/uL (4.00-5.40); WHITE BLOOD COUNT 27.2 10^3/uL (4.0-10.0)
[2021-01-09 05:07] LABS: CALCIUM LEVEL 8.2 MG/DL (8.8-10.2); CREATININE FOR GFR 2.04 MG/DL (0.55-1.30); GLOMERULAR FILTRATION RATE 24.7 (>32); POTASSIUM SERUM 5.5 MEQ/L (3.5-5.1)
[2021-01-09] MEDS ORDERED: NOREPINEPHRINE BITARTRATE 8 MG in D5W 500 ML IV SCH (06:30)
[2021-01-09] MEDS: PIPERACILLIN/TAZOBACTAM SOD 2.25 GM in D5W MINI-BAG PLUS 50 ML IV SCH ×2 (06:59→11:55)
[2021-01-09] MEDS ORDERED: NOREPINEPHRINE BITARTRATE 8 MG in D5W 492 ML IV SCH (08:00)
[2021-01-09] MEDS ORDERED: NALOXONE INJ 0.4MG/1ML VIAL (J2310 PER 1MG) IV STA (08:01)
[2021-01-09] MEDS ORDERED: VANCOMYCIN HCL 1,000 MG, VIAL MATE ADAPTER 1 EACH in NS 250 ML IV SCH ×6 (09:00)
[2021-01-09 10:13] LABS: CALCIUM LEVEL 8.1 MG/DL (8.8-10.2); GLOMERULAR FILTRATION RATE 25.3 (>32); POTASSIUM SERUM 5.3 MEQ/L (3.5-5.1)
[2021-01-09 10:29] LABS: CK-MB VALUE MASS 29.5 NG/ML (<3.6); CPK CREATINE PHOSPHOKINASE 1384 U/L (26-192); MB/CK RELATIVE INDEX 2.13 (< OR =4); TROPONIN I < 0.02 NG/ML (< 0.10)
[2021-01-09] MEDS ORDERED: FUROSEMIDE 40MG/4ML VIAL (J1940) IV SCH (12:00)
[2021-01-09] MEDS ORDERED: CALCIUM GLUCONATE 1,000 MG in D5W MINI-BAG PLUS 100 ML IV ONE ×3 (14:00→16:00)
[2021-01-09 14:15] LABS: GLOMERULAR FILTRATION RATE 25.3 (>32); POTASSIUM SERUM 5.4 MEQ/L (3.5-5.1)
[2021-01-09] MEDS ORDERED: LIDOCAINE 1% MDV 20ML VIAL As Ordered ONE (16:10)
[2021-01-09] MEDS ORDERED: SODIUM CHLORIDE 0.9% INJ 10 ML SYR IV PRN (18:00)
[2021-01-09] MEDS ORDERED: SODIUM CHLORIDE 0.9% INJ 10 ML SYR IV SCH (18:00)
[2021-01-09] MEDS ORDERED: NOREPINEPHRINE BITARTRATE 16 MG in D5W 484 ML IV SCH (18:00)
[2021-01-09] MEDS ORDERED: ATROPINE SULFATE 1% OP SOLN 2 ML BTL SL PRN (18:25)
[2021-01-09] MEDS ORDERED: ONDANSETRON 4MG/2ML VIAL IV PRN (18:25)
[2021-01-09] MEDS: MORPHINE 2 MG/ML 1ML VIAL (J2270) IV PRN (20:56)
[2021-01-10] MEDS ORDERED: MORPHINE 2 MG/ML 1ML VIAL (J2270) IV ONE (11:50)
[2021-01-10] MEDS: SCOPOLAMINE 1MG TRANSDERMAL PATCH TOP PRN (12:39)
[2021-01-10] MEDS: MORPHINE 2 MG/ML 1ML VIAL (J2270) IV PRN ×2 (17:32→21:57)
[2021-01-11] MEDS: MORPHINE 2 MG/ML 1ML VIAL (J2270) IV PRN (10:40)
[2021-01-11] MEDS: LORazepam 2 MG/ML VIAL IV PRN (12:31)
[2021-01-12] MEDS ORDERED: LORazepam 2 MG/ML VIAL As Ordered ONE ×2 (04:03→20:15)
[2021-01-12] MEDS: LORazepam 2 MG/ML VIAL IV PRN ×2 (04:06→20:19)
[2021-01-12] MEDS: MORPHINE 2 MG/ML 1ML VIAL (J2270) IV PRN (15:29)
[2021-01-13] MEDS: MORPHINE 2 MG/ML 1ML VIAL (J2270) IV PRN ×3 (02:19→11:26)
[2021-01-13] MEDS: SCOPOLAMINE 1MG TRANSDERMAL PATCH TOP PRN (08:35)
[2021-01-13] MEDS: LORazepam 2 MG/ML VIAL IV PRN ×2 (11:45→20:16)
[2021-01-13] MEDS ORDERED: LORazepam 2 MG/ML VIAL As Ordered ONE (20:13)
[2021-01-14] MEDS ORDERED: LORazepam 2 MG/ML VIAL As Ordered ONE (05:39)
[2021-01-14] MEDS: LORazepam 2 MG/ML VIAL IV PRN ×3 (05:41→17:47)
[2021-01-14] MEDS: MORPHINE 2 MG/ML 1ML VIAL (J2270) IV PRN ×3 (12:12→22:45)
== END 2021-01-15 04:15 | disposition expired | DRG 480 ==
LOC: M ED 21:32 → M ED INP 23:21 → ENRESERV 23:54 → M MS5PR 01-07 01:45 → M PCU 01-08 00:58 → M MS5PR 01-09 21:33
PROVIDERS: ADMIT Family Medicine; ATTEND General Practice
PROC: 0QS Lower Bones, Reposition (ICD-10-PCS; principal; 2021-01-08)
PROC: 02HV33Z Insertion of Infusion Device into Superior Vena Cava, Percutaneous Approach (ICD-10-PCS; 2021-01-10)
DX: S72.92XA Unspecified fracture of left femur, initial encounter for closed fracture (principal); A41.9 Sepsis, unspecified organism; R65.21 Severe sepsis with septic shock; G93.41 Metabolic encephalopathy; I50.33 Acute on chronic diastolic (congestive) heart failure; J18.9 Pneumonia, unspecified organism; J69.0 Pneumonitis due to inhalation of food and vomit; N17.9 Acute kidney failure, unspecified; E87.5 Hyperkalemia; Z79.01 Long term (current) use of anticoagulants; Z95.0 Presence of cardiac pacemaker; I48.91 Unspecified atrial fibrillation; F32.9 Major depressive disorder, single episode, unspecified; Z79.899 Other long term (current) drug therapy; Z88.8 Allergy status to other drugs, medicaments and biological substances; W18.30XA Fall on same level, unspecified, initial encounter; Y92.129 Unspecified place in nursing home as the place of occurrence of the external cause